=== PATIENT | male | born 1945 | race Caucasian/White ===

== ENCOUNTER 2017-11-07 09:40 | Day surgery (SDC) | payer MEDICARE, OTHER ==
[~2017-11-07 09:40] MED LIST: ACETAMINOPHEN 325 MG TAB PO; BSS with VANC/TOB/EPI for EYE CASES IR; PHENYLEPHRINE HCL 10 % OPHTH. SOL 5ML OS
[2017-11-07] MEDS ORDERED: TROPICAMIDE 1% OPHTH SOLN 2ML As Ordered (10:33)
[2017-11-07] MEDS ORDERED: OFLOXACIN 0.3 % (OCUFLOX) OPTH SOL 5ML As Ordered (10:33)
[2017-11-07] MEDS ORDERED: CYCLOPENTOLATE 2% OPHTH SOLN 2ML BTL As Ordered (10:33)
[2017-11-07] MEDS ORDERED: PHENYLEPHRINE 2.5% OPHTH SOL 2ML As Ordered (10:33)
[2017-11-07] MEDS: OFLOXACIN 0.3 % (OCUFLOX) OPTH SOL 5ML OS (10:58)
[2017-11-07] MEDS: PHENYLEPHRINE 2.5% OPHTH SOL 2ML OS (10:58)
[2017-11-07] MEDS: CYCLOPENTOLATE 2% OPHTH SOLN 2ML BTL OS (10:58)
[2017-11-07] MEDS: TROPICAMIDE 1% OPHTH SOLN 2ML OS (10:58)
[2017-11-07] MEDS: LIDOCAINE 3.5 % 1ML OPHTH TOPICAL GEL OU (10:59)
[2017-11-07] MEDS: POVIDONE-IODINE 5% OPHTH PREP SOL 30ML As Ordered (12:29)
[2017-11-07] MEDS ORDERED: fentaNYL 100 MCG/2 ML INJECTION (J3010) As Ordered (12:29)
[2017-11-07] MEDS ORDERED: MIDAZOLAM INJ 2 MG/2 ML VIAL (J2250) As Ordered (12:29)
[2017-11-07] MEDS: TRIAMCINOLONE PRES FR 40 MG/ML 1ML(TRIESENCE)(OR EYE ONLY)(J3300 PER 1MG) As Ordered (12:32)
[2017-11-07] MEDS: HEALON DUET (HEALON 10MG/ML 0.55ML & HEALON ENDOCOAT 30MG/ML 0.85ML) As Ordered (12:32)
[2017-11-07] MEDS: MOXIFLOXACIN IN BSS 0.25MG/0.25ML INTRACAMERAL INJ (OR EYE ONLY)(J2280) As Ordered (12:32)
[2017-11-07] MEDS: LIDOCAINE 1% SDV 5 ML VIAL As Ordered (12:37)
[2017-11-07] MEDS ORDERED: TRIMETHOBENZAMIDE 300 MG CAP PO (13:00)
[2017-11-07] MEDS: AcetaZOLAMIDE 500 MG ER CAP PO (13:13)
== END 2017-11-07 13:24 | disposition home or self-care (01) ==
LOC: M SDC 09:40
DX: H25.9 Unspecified age-related cataract (principal); I25.2 Old myocardial infarction; I10 Essential (primary) hypertension; E78.5 Hyperlipidemia, unspecified; E03.9 Hypothyroidism, unspecified; M54.2 Cervicalgia; Z79.82 Long term (current) use of aspirin; Z79.899 Other long term (current) drug therapy
CPT/HCPCS: 66984

== ENCOUNTER 2017-11-14 10:01 | Day surgery (SDC) | payer MEDICARE, OTHER ==
[~2017-11-14 10:01] MED LIST changes: -BSS with VANC/TOB/EPI for EYE CASES IR; +MIDAZOLAM INJ 2 MG/2 ML VIAL (J2250) As Ordered; +PHENYLEPHRINE HCL 10 % OPHTH. SOL 5ML OD; -PHENYLEPHRINE HCL 10 % OPHTH. SOL 5ML OS; +fentaNYL 100 MCG/2 ML INJECTION (J3010) As Ordered
[2017-11-14] MEDS: PHENYLEPHRINE 2.5% OPHTH SOL 2ML OD (11:04)
[2017-11-14] MEDS: TROPICAMIDE 1% OPHTH SOLN 2ML OD (11:04)
[2017-11-14] MEDS: CYCLOPENTOLATE 2% OPHTH SOLN 2ML BTL OD (11:04)
[2017-11-14] MEDS: LIDOCAINE 3.5 % 1ML OPHTH TOPICAL GEL OU (11:04)
[2017-11-14] MEDS: OFLOXACIN 0.3 % (OCUFLOX) OPTH SOL 5ML OD (11:04)
[2017-11-14] MEDS: HEALON DUET (HEALON 10MG/ML 0.55ML & HEALON ENDOCOAT 30MG/ML 0.85ML) As Ordered (12:06)
[2017-11-14] MEDS: POVIDONE-IODINE 5% OPHTH PREP SOL 30ML As Ordered (12:06)
[2017-11-14] MEDS: LIDOCAINE 1% SDV 5 ML VIAL As Ordered (12:06)
[2017-11-14] MEDS: BSS with VANC/TOB/EPI for EYE CASES IR (12:07)
[2017-11-14] MEDS: MOXIFLOXACIN IN BSS 0.25MG/0.25ML INTRACAMERAL INJ (OR EYE ONLY)(J2280) As Ordered (12:07)
[2017-11-14] MEDS: TRIAMCINOLONE PRES FR 40 MG/ML 1ML(TRIESENCE)(OR EYE ONLY)(J3300 PER 1MG) As Ordered (12:07)
[2017-11-14] MEDS ORDERED: AcetaZOLAMIDE 500 MG ER CAP As Ordered (12:32)
[2017-11-14] MEDS: AcetaZOLAMIDE 500 MG ER CAP PO (12:35)
[2017-11-14] MEDS ORDERED: TRIMETHOBENZAMIDE 300 MG CAP PO (12:45)
[2017-11-14] MEDS ORDERED: ACETAMINOPHEN TAB 650MG DOSE (2X325MG) PO (12:45)
== END 2017-11-14 13:00 | disposition home or self-care (01) ==
LOC: M SDC 10:01
DX: H26.9 Unspecified cataract (principal); I25.2 Old myocardial infarction; I10 Essential (primary) hypertension; E78.00 Pure hypercholesterolemia, unspecified; R01.1 Cardiac murmur, unspecified; E03.9 Hypothyroidism, unspecified; K21.9 Gastro-esophageal reflux disease without esophagitis; M12.9 Arthropathy, unspecified; M54.2 Cervicalgia; R06.02 Shortness of breath; E66.9 Obesity, unspecified; Z68.32 Body mass index [BMI] 32.0-32.9, adult; Z79.899 Other long term (current) drug therapy; Z79.82 Long term (current) use of aspirin
CPT/HCPCS: 66984

== ENCOUNTER → 2020-03-12 | Outpatient (CLI) | payer MEDICARE, OTHER ==
[~2020-03-12] MED LIST changes: -ACETAMINOPHEN 325 MG TAB PO; +ASPI-255 PO; +BUME1TAB3 PO; +CO Q100C PO; +CYCL-707 PO; +FLUT05CR TOP; +FOLI1TAB11 PO; +KETO2CR TOP; +LEVO150T7 PO; +LEVO175T2 PO; +LISI10TA22 PO; +MAGN400T5 PO; +METO1TAB7 PO; -MIDAZOLAM INJ 2 MG/2 ML VIAL (J2250) As Ordered; +NEUR300C PO; -PHENYLEPHRINE HCL 10 % OPHTH. SOL 5ML OD; +POTA10TA16 PO; +PRIM250T8 PO; +PROT1TAB2 PO; +RANI15TA PO; +SIMV40TA20 PO; +SUCR1TA PO; +VITA500046 PO; -fentaNYL 100 MCG/2 ML INJECTION (J3010) As Ordered
--- NOTE | 2020-03-12 11:35 | RADONC.CN ---
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 He is seen for consideration of adjuvant RT. Diagnosis/Treatment History Oncologic History Notes in ~2003 he had a melanoma excised from the right upper back. No adjuvant treatment was given, the area was later re-excised due to concern for recurrence, but final pathology revealed only benign findings. In January 2020 at a routine skin examination at [facility] he was found to have a small round ~2 cm ulcerated lesion on the left upper arm. This was excised on 02/25/20 with pathology showing SCC well differentiated 3 cm in greatest extent 1 cm deep extending into subcutaneous tissues. Positive deep margin. Interval History Feels well overall. 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 He denies immunocompromise. He does not smoke. He has a history of rosacea. There is a family history of skin cancer. Past Medical History: Melanoma SCC skin Actinic keratoses Rosacea Herniated lumbar disc HTN HPL Hypothyroidism Past Surgical History: As above Family History: Multiple family members with non-melanomoa skin cancer Social History: Former combination welder Non-smoker Non-drinker Allergies / Meds Allergies: Coded Allergies: MS - No Known Drug Allergy (Verified Allergy, Unknown, 11/07/17) Home Meds Reported Medications Primidone (Primidone) 250 Mg Tablet, 1 TAB PO QID for 30 Days, #60 TAB 03/12/20 Potassium Chloride (Potassium Chloride) 10 Meq Tab.er.prt, 1 TAB PO DAILY for 30 Days, #30 TAB 03/12/20 Fluticasone Propionate (Fluticasone Propionate 0.05%) 30 Gm Cream..g., 1 APLCT TOP DAILY for 30 Days, #60 GRAM 03/12/20 Ketoconazole (Ketoconazole) 15 Gm Cream..g., 1 APLCT TOP DAILY for 7 Days, #15 GRAM apply to affected area(s) 03/12/20 Ranitidine Hcl (Ranitidine HCl) 150 Mg Tab, 150 MG PO BID, TAB 05/03/14 Simvastatin (Simvastatin) 40 Mg Tab, 40 MG PO QPM, TAB 05/03/14 Levothyroxine Sodium (LEVOTHYROXINE SODIUM) 175 Mcg Tab, 150 MCG PO every other day, TAB 05/03/14 Levothyroxine Sodium (LEVOTHYROXINE SODIUM) 150 Mcg Tab, 150 MCG PO every other day, TAB 05/03/14 Cyclobenzaprine HCl (Cyclobenzaprine HCl) 10 Mg Tab, 10 MG PO QHS, TAB 05/03/14 Bumetanide (Bumetanide) 1 Mg Tab, 1 MG PO BID, TAB 05/03/14 Metoprolol Succinate (Metoprolol Succinate) 50 Mg Tab, 50 MG PO DAILY, TAB 05/03/14 Folic Acid (Folic Acid) 1 Mg Tab, 1 MG PO DAILY, TAB 05/03/14 Aspirin (Aspirin EC) 325 Mg Tabec, 81 MG PO DAILY, TAB 05/03/14 Ubidecarenone (Co Q-10) 100 Mg Cap, 2 CAP PO DAILY, CAP 05/03/14 Discontinued Reported Medications Cholecalciferol (Vitamin D) 5,000 Unit Tab, 5000 UNIT PO DAILY, TAB 11/02/17 Lisinopril (Lisinopril) 10 Mg Tab, 10 MG PO QPM, TAB 05/03/14 Magnesium Oxide (Magnesium Oxide 400) 400 Mg Tab, 400 MG PO DAILY, TAB 05/03/14 Review of Systems Constitutional: Denies: Chills, Fever, Night Sweats Eyes: Denies: Pain, Vision change HEENT: Denies: Head Aches, Dysphagia, Sore Throat Skin: Reports: Lesions; Denies: Bruising Pulmonary: Denies: Dyspnea, Cough Cardiovascular: Denies: Chest Pain, Palpitations, Edema Gastrointestinal: Denies: Nausea, Vomiting, Abdominal Pain, Diarrhea Genitourinary: Denies: Dysuria, Frequency, Incontinence Hematologic: Denies: Bruising, Petecchia, Enlarged Lymph Nodes Musculoskeletal: Denies: Neck pain, Back pain Neurological: Denies: Weakness, Numbness, Incoordination Psych: Reports: Mood Normal; Denies: Memory Issues, Thoughts of Self Harm Vital Signs Ht 72" Wt 281 lb BMI 38 T 98.6 P 60 RR 18 BP 152/82 O2 97% Pain 0 Fatigue 0 General Exam: Positive: Alert, Cooperative, No Acute Distress Eye Exam: Positive: PERRLA, EOMI ENT EXAM: Positive: Mucous membr. moist/pink, Pharynx Normal Neck Exam: Negative: Thyromegaly, Lymphadenopathy Chest Exam: Positive: Normal air movement; Negative: Rales, Rhonchi, Wheezing Heart Exam: Positive: Rate Normal, Regular Rhythm Abdomen Exam: Positive: Soft; Negative: Tenderness, Mass Extremity Exam: Negative: Edema, Tenderness Neuro Exam: Positive: Normal Gait, Normal Speech, Cranial Nerves 3-12 NL Psych Exam: Positive: Mental status NL, Mood NL, Memory Intact Other Physical Findings Skin exam. On the nose and malar cheeks there is a red rash, with mild pitting noted on the nose. No rhinophyma. There are various solar lentigos on the facial skin and upper extremities. There are no palpable nodes in the left axilla, supraclavicular fossa or BL cervical necks. There is a 6 cm longitudinal scar on the left anterior arm. The scar is healed, not indurated, no ulceration or drainage. There mild nodularity at the superior limit of the scar without a firm mass. Diagnostic and Laboratory Diagnostic Review Radiologic images, relevant labs and pathology reports were personally reviewed and discussed with Mr. Langford. Assessment and Plan Impression Mr. 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 He is seen for consideration of adjuvant RT. Stage Cutaneous SCC well differentiated [id number] Performance Status ECOG 0 Plan We had an extensive discussion with Mr. Langford regarding the diagnosis at hand and available therapeutic options. He has a high risk lesion given the positive deep margin and invasion of subcutaneous tissues (1 cm deep). He has no evidence of early recurrence at the surgical site, and the site is well-healed. He also has no evidence of adenopathy on exam. I recommend adjuvant RT 55 Gy in 20 fractions with electrons and bolus. I will likely use a 10 cm circular cutout for collimation. I think this regimen is appropriate given he has some scheduling constraints given he is his 's caregiver at home and the lesion is on free skin. We discussed the logistics of receiving radiation therapy in detail including the need for a 1-time planning session. This can occur next week. We reviewed the side effects of treatment including fatigue, skin reaction and late fibrosis. After discussing the risks, benefits and alternatives to radiation therapy, Mr. Langford was amenable to pursuing radiotherapy. All questions were answered to the patient's satisfaction. We instructed the patient that if there were any questions,concerns or changes in clinical status in the interim to contact us. Recommendations Adjuvant RT 55 Gy in 20 fractions with electrons/bolus Simulation next week CAT MCWILLIAMS MD Mar 12, 2020 11:34
== END ==
LOC: M ONCR 09:56
PROVIDERS: ATTEND General Practice
DX: C44.629 Squamous cell carcinoma of skin of left upper limb, including shoulder (principal)

== ENCOUNTER 2020-03-26 08:15 | Outpatient (RCR) | payer MEDICARE, OTHER ==
[~2020-03-26 08:15] MED LIST changes: -LISI10TA22 PO; +LISI10TA4 PO
== END 2020-03-28 ==
LOC: M ONCR 08:15
PROVIDERS: ATTEND General Practice
DX: C44.692 Other specified malignant neoplasm of skin of right upper limb, including shoulder (principal)

== ENCOUNTER 2020-04-20 15:40 | Outpatient (RCR) | payer MEDICARE, OTHER ==
--- NOTE | 2020-04-01 08:56 | RADENCPD ---
Date/Time of Encounter Date of Encounter: Apr 01, 2020 Time of Encounter: 08:47 Encounter Lucius asked to be seen today for a new concern of a skin lesion over the right outer canthus of the eye. States it has come on over the past 7 days. It is mildly tender. There is no tearing of the eye, change in vision, or eye pain per se. He is concerned about it and wonders if it is another skin cancer He is currently receiving adjuvant RT to an excised SCC of the LUE, 09/14 treatments completed and tolerating well without any significant side effects. On exam there is a ~1.8 cm red mildly indurated but mobile lesion of the skin of the right outer canthus. It is mildly tender. On the rest of the face there are scattered solar lentigos. Assessment/plan: This could be an inflammatory lesion given the rapid onset and tenderness on exam, versus an actinic keratosis, or non-melanoma skin cancer, given his history. I think he should be evaluated at [facility], and this spot appears amenable to shave biopsy. He will call for an appointment, and I will send our recent records. If this proves to be a malignant lesion, the location would be amenable for definitive RT. CAT MCWILLIAMS MD Apr 01, 2020 08:56
--- NOTE | 2020-04-12 15:57 | RADENCPD ---
Date/Time of Encounter Date of Encounter: Apr 12, 2020 Time of Encounter: 15:48 Encounter Lucius reports that he has a family member cohabitant whom has tested positive for COVID 19. The member in question is currently isolating elsewhere and Lucius has no symptoms and has not tested positive himself. I clarified with infection control and will continue to treat him. We will use full contact and droplet precautions and move his radiation appointment to the last of the day. He has once daily 6 fractions remaining from today. CAT MCWILLIAMS MD Apr 12, 2020 15:57
[~2020-04-20 15:40] MED LIST changes: +LISI10TA22 PO; -LISI10TA4 PO
== END 2020-04-25 ==
LOC: M ONCR 15:40
PROVIDERS: ATTEND General Practice
DX: C44.629 Squamous cell carcinoma of skin of left upper limb, including shoulder (principal)

== ENCOUNTER → 2020-05-19 | Outpatient (CLI) | payer MEDICARE, OTHER ==
--- NOTE | 2020-05-19 10:16 | RADENCPD ---
Date/Time of Encounter Date of Encounter: May 19, 2020 Time of Encounter: 10:03 Encounter Lucius came in for a brief follow up today to assess the condition of his left upper arm s/p 55 Gy in 20 fractions adjuvant RT for a deeply invading and rapidly growing SCC. He has no complaints other than the site is itchy. He is using aquaphor. He states the peeling of the skin has slowed. There is no pain or tenderness. He also had shingles during RT, corner of OD, small area, was uncomfortable not involving the eye itself. Resolved spontaneously. On exam the left forearm site has a well demarcated 10 cm circular area of erythema and mild induration with evident ongoing dry desquamation. There is no tenderness or ulceration. There are no lesions concerning for recurrent SCC. Asessment: SARAH on exam, healing grade 1-2 RT dermatitis. Plan: Hydrocortisone 1% to areas of pruritus, continue Aquaphor until skin reaction resolves. Follow up with [facility] as scheduled Follow up with me in 5 months time (6 months post-RT) CAT MCWILLIAMS MD May 19, 2020 10:16
== END ==
LOC: M ONCR 09:27
PROVIDERS: ATTEND General Practice
DX: C44.629 Squamous cell carcinoma of skin of left upper limb, including shoulder (principal)

== ENCOUNTER → 2020-08-16 | Outpatient (REF) | payer MEDICARE, OTHER | LOC: M LAB REF 14:22 | PROVIDERS: ATTEND Ophthalmology | DX: D23.112 Other benign neoplasm of skin of right lower eyelid, including canthus (principal) ==

== ENCOUNTER → 2020-11-17 | Outpatient (CLI) | payer MEDICARE, OTHER ==
--- NOTE | 2020-11-17 11:08 | RADONC ---
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 He completed RT to this site 55 Gy in 20 fractions with electrons from 03/24/20-04/20/20. Diagnosis/Treatment History Oncologic History Notes in ~2003 he had a melanoma excised from the right upper back. No adjuvant treatment was given, the area was later re-excised due to concern for recurrence, but final pathology revealed only benign findings. In January 2020 at a routine skin examination at [facility] he was found to have a small round ~2 cm ulcerated lesion on the left upper arm. This was excised on 02/25/20 with pathology showing SCC well differentiated 3 cm in greatest extent 1 cm deep extending into subcutaneous tissues. Positive deep margin. 03/24/20-04/20/20 RT 55 Gy in 20 fractions to the LUE with electrons Interval History Lucius reports his is on home hospice. He is coping well. He has no complaints related to the treatment area, reports no pain or new lesions in the area. Is established @ [facility] and has follow up for skin exams. Current Therapy Surveillance Stage Cutaneous SCC LUE well differentiated [id number] stage I Social History: Former welder production line combination Non-smoker Non-drinker Allergies / Meds Allergies: Coded Allergies: MS - No Known Drug Allergy (Verified Allergy, Unknown, 11/07/17) Home Meds Reported Medications Primidone (Primidone) 250 Mg Tablet, 1 TAB PO QID for 30 Days, #60 TAB 03/12/20 Potassium Chloride (Potassium Chloride) 10 Meq Tab.er.prt, 1 TAB PO DAILY for 30 Days, #30 TAB 03/12/20 Fluticasone Propionate (Fluticasone Propionate 0.05%) 30 Gm Cream..g., 1 APLCT TOP DAILY for 30 Days, #60 GRAM 03/12/20 Ketoconazole (Ketoconazole) 15 Gm Cream..g., 1 APLCT TOP DAILY for 7 Days, #15 GRAM apply to affected area(s) 03/12/20 Ranitidine Hcl (Ranitidine HCl) 150 Mg Tab, 150 MG PO BID, TAB 05/03/14 Simvastatin (Simvastatin) 40 Mg Tab, 40 MG PO QPM, TAB 05/03/14 Levothyroxine Sodium (LEVOTHYROXINE SODIUM) 175 Mcg Tab, 150 MCG PO every other day, TAB 05/03/14 Levothyroxine Sodium (LEVOTHYROXINE SODIUM) 150 Mcg Tab, 150 MCG PO every other day, TAB 05/03/14 Cyclobenzaprine HCl (Cyclobenzaprine HCl) 10 Mg Tab, 10 MG PO QHS, TAB 05/03/14 Bumetanide (Bumetanide) 1 Mg Tab, 1 MG PO BID, TAB 05/03/14 Metoprolol Succinate (Metoprolol Succinate) 50 Mg Tab, 50 MG PO DAILY, TAB 05/03/14 Folic Acid (Folic Acid) 1 Mg Tab, 1 MG PO DAILY, TAB 05/03/14 Aspirin (Aspirin EC) 325 Mg Tabec, 81 MG PO DAILY, TAB 05/03/14 Ubidecarenone (Co Q-10) 100 Mg Cap, 2 CAP PO DAILY, CAP 05/03/14 Review of Systems Review of Systems Constitutional: Denies: Fatigue, Weight Loss Eyes: Denies: Pain HEENT: Denies: Head Aches Skin: Denies: Lesions Pulmonary: Denies: Dyspnea Cardiovascular: Denies: Chest Pain Gastrointestinal: Denies: Abdominal Pain Hematologic: Denies: Bruising, Bleeding Excessively Musculoskeletal: Denies: Neck pain, Arm pain, Back pain, Leg pain Neurological: Denies: Weakness, Numbness Psych: Reports: Mood Normal Physical Examination Vital Signs Wt 273 lbs T 97.6 P 62 RR 20 BP 148/79 O2 98% Pain 0 Fatigue 0 General Exam: Alert, Cooperative, No Acute Distress Eye Exam: PERRLA, EOMI ENT EXAM: Atraumatic Neck Exam: Supple Extremity Exam: Other (LUE treatment site with grade 1 hyperpigmentation corresponding to the field aperture. No palpable fibrosis or lesions, scar well healed, no suspicious nodularity or skin changes. No tenderness) Skin Exam: Nl turgor and temperature Neuro Exam: Normal Gait, Normal Speech, Cranial Nerves 3-12 NL Psych Exam: Mental status NL Diagnostic and Laboratory Diagnostic Review Radiologic images, relevant labs and pathology reports were personally reviewed and discussed with Mr. Langford. Assessment and Plan Impression Assessment Mr. 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 He completed RT to this site 55 Gy in 20 fractions with electrons from 03/24/20-04/20/20. I am pleased with the outcome of treatment now 6 months post completion of RT. There is no functional impairment in the LUE, with only the usual late skin effects of hyperpigmentation present. There is no sign of recurrent cancer there. I discussed that for survivorship, he should have biannual skin exams with his set designer. As he is followed for this at [facility], I can see him as needed from here on. He is agreeable to the plan. Performance Status ECOG 0 Plan Follow up with [facility] for skin exams Follow up with me as needed Mr. Langford was encouraged to call with questions or concerns in the interim period. Billing Statement Total time of [21] minutes was spent preparing for the visit [1], obtaining HPI [6], examining the patient [2], reviewing diagnostic tests [0], discussing management options [5], coordinating care [0], and writing this note [7]. CAT MCWILLIAMS MD Nov 17, 2020 11:08
== END ==
LOC: M ONCR 09:53
PROVIDERS: ATTEND General Practice
DX: C44.629 Squamous cell carcinoma of skin of left upper limb, including shoulder (principal); Z57.1 Occupational exposure to radiation; Z79.82 Long term (current) use of aspirin; Z79.890 Hormone replacement therapy; Z79.899 Other long term (current) drug therapy; Z85.820 Personal history of malignant melanoma of skin

== ENCOUNTER → 2023-05-21 | Outpatient (CLI) | payer MEDICARE, OTHER ==
[~2023-05-21] MED LIST changes: +POTA-149 PO; -POTA10TA16 PO
== END ==
LOC: M WUC 14:51
PROVIDERS: ATTEND Nurse Practitioner Family
DX: M25.561 Pain in right knee (principal); M17.11 Unilateral primary osteoarthritis, right knee; M11.261 Other chondrocalcinosis, right knee